=== PATIENT | female | born 1985 | race Caucasian/White ===

== ENCOUNTER 2020-09-05 21:28 | Emergency (ER) | payer OTHER ==
[~2020-09-05 21:28] MED LIST: NORCO 7.5-3251 EACH PO
[2020-09-05] MEDS ORDERED: LODINE CAP 300300 MG PO (22:02)
[2020-09-05] MEDS ORDERED: DICLOXACILLIN500 MG PO (22:02)
== END 2020-09-05 22:10 | disposition home or self-care (01) ==
LOC: ER1 21:28
DX: N61.0 Mastitis without abscess (principal); F17.210 Nicotine dependence, cigarettes, uncomplicated; Z90.89 Acquired absence of other organs
CPT/HCPCS: 99283

== ENCOUNTER → 2020-10-09 | Outpatient (CLI) | payer OTHER ==
[~2020-10-09] MED LIST changes: +DICLOXACILLIN500 MG PO; +LODINE CAP 300300 MG PO
== END ==
LOC: MAMO 14:25
DX: N63.0 Unspecified lump in unspecified breast (principal); N61.1 Abscess of the breast and nipple; Z80.3 Family history of malignant neoplasm of breast; Z87.2 Personal history of diseases of the skin and subcutaneous tissue
CPT/HCPCS: 76642-LT; 77066; G0279

== ENCOUNTER → 2021-10-13 | Outpatient (CLI) | payer OTHER | LOC: KOH-I 15:45 | DX: E04.2 Nontoxic multinodular goiter (principal) | CPT/HCPCS: 76536 ==